=== PATIENT | female | born 1965 ===

== ENCOUNTER 2017-04-08 06:46 | Day surgery (SDC) | payer MEDICAID, OTHER ==
[2017-04-08 07:19] VITALS: BMI 37.4
--- NOTE | 2017-04-08 08:41 | CP.SDSHP ---
Same Day Surgery H & P - History Proposed Procedure: colonscopy Pre-Op Diagnosis: SEE NOTES - Previous Medical/Surgical History Endocrine/Metabolic: Thyroid Disease Misc: Other Pain: 4.Moderate Pain - Allergies Allergies: Allergies No Known Allergies Allergy (Verified 08/19/16 16:08) - Physical Exam General Appearance: N Vital Signs: Vital Signs 04/08/17 07:19 Temperature 97.3 F L Pulse Rate 77 Respiratory 19 Rate Blood Pressure 105/54 L O2 Sat by Pulse 97 Oximetry Mental Status: Alert & Oriented x3 Neuro: WNL Heart: WNL Lungs: WNL GI: Other - {Optional Preform as Required} Breast: WNL Abdomen: Other Rectal: Other Integument: WNL : WNL Ortho: Other ENT: WNL - Impression Pt. Evaluated Today:Candidate for Anesthesia & Procedure: Yes - Date & Time Time: 08:41 Short Stay Discharge - Short Stay Discharge Admitting Diagnosis/Reason for Visit: RECTAL BLEEDING Disposition: HOME/ ROUTINE
[2017-04-08] MEDS ORDERED: Lactated Ringer's 1,000 ML IV ONE (08:45)
[2017-04-08] MEDS ORDERED: Lactated Ringer's 500 ML IV SCH (08:45)
[2017-04-08] MEDS ORDERED: Propofol 10 mg/ml Inj (20 ML) ONE (08:51)
[2017-04-08] MEDS ORDERED: Lidocaine Hydrochloride 5 ML INJ ONE (08:51)
[2017-04-08 09:25] VITALS: TEMP 97.8
[2017-04-08] MEDS ORDERED: Belladonna-Phenobarbital PO ONE (09:25)
[2017-04-08 09:34] VITALS: O2SAT 100
[2017-04-08 09:57] VITALS: BP 98/61; PULSE 62; RESP 18
== END 2017-04-08 10:00 | disposition home or self-care (01) ==
LOC: C.ENDO 06:46
PROVIDERS: ATTEND Specialist
DX: K62.5 Hemorrhage of anus and rectum (principal); K64.8 Other hemorrhoids; K58.9 Irritable bowel syndrome, unspecified
CPT/HCPCS: 45380; 88305; J2704; J7120